=== PATIENT | male | born 1975 | race Caucasian/White ===

== ENCOUNTER 2021-12-10 23:37 | Emergency (ER) | payer OTHER, SELFPAY ==
[2021-12-10 23:38] VITALS: BP 150/89; PULSE 74; RESP 15; TEMP 36.8; O2SAT 98; BMI 46.4
--- NOTE | 2021-12-10 23:53 | EX.ED.VIS.EY ---
HPI History of Present Illness Chief Complaint: Eye Problem Informant: patient Onset/Context/Timing Location: Left Eye Onset: Days (3-day) Context: Gradual Onset Current Severity: Mild Maximum Severity: Moderate Associated Symptoms Associated Symptoms - Eyes: Pain History of injury: Welding injury Narrative Narrative: Patient presents with concerns of flash burn to his left eye. 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 He states during the day Saturday he started getting some left eye redness and irritation. Symptoms continued throughout the weekend. He was supposed to drive to [place] today but because of light sensitivity and watering did not feel that he should do so. He does wear glasses as needed. He does not wear contacts. [facility] [place] Medical History Seasonal allergies Home Medications GF-9 PO 10/30/21 [History Last Taken Unknown] multivitamin 1 tab PO DAILY 10/30/21 [History Last Taken Unknown] naproxen sodium 220 mg capsule (Aleve) 220 mg PO BID PRN 10/30/21 [History Last Taken Unknown] Allergy/AdvReac Type Severity Reaction Status Date / Time iodine Allergy Mild skin Verified 10/30/21 14:48 irritation Family History Father Diabetes Social History Smoking Status: Current every day smoker alcohol intake: current alcohol intake frequency: holidays/special occasions only substance use type: does not use ROS ROS ED Constitutional Constitutional ED: Denies chills or fever(s) Eyes Eyes: Reports blurry vision left and change in vision ENT ENT ED: Reports other Details: Watering from left eye, no exudate. ; Denies rhinorrhea or sore throat Cardiovascular Cardiovascular: Denies chest pain or palpitations Respiratory/Chest Respiratory/Chest: Denies cough or dyspnea Gastrointestinal Gastrointestinal: Denies abdominal pain, nausea or vomiting Genitourinary Genitourinary ED: Denies dysuria Musculoskeletal Musculoskeletal: Denies back pain or extremity pain Integumentary Denies Abrasions or rash Neurologic Neurologic: Denies headache(s) or weakness Psychiatric Psychiatric: Denies anxiety or depression Allergic/Immunologic Allergic/Immunologic ED: Denies lip swelling or urticaria EXAM Physical Exam Const Vital Signs: 12/10/21 23:38 Temperature 98.2 F Temperature Source Temporal Pulse Rate 74 Respiratory Rate 15 Blood Pressure 150/89 H Blood Pressure Mean 109 Pulse Ox 98 Oxygen Delivery Method Room Air Positive well nourished and well developed General Appearance ED: well developed Eyes Eyes Narrative: Conjunctival injection left eye. Small eyelash noted along the lower portion of the eye easily moved removed with cotton-tipped swab. Neck no lymphadenopathy Resp normal respiratory effort Cardio regular rate and regular rhythm Extremity normal to inspection Neuro oriented x3 and moves all extremities Sensorium / Orientation: alert Skin no wounds MDM MDM MDM Narrative Medical decision making narrative: Patient will be given tetracaine drops to help control pain here. He will be treated with gentamicin eyedrops. In 3 days who may refer to ophthalmology if not improving. Discharge Plan Triage Chief Complaint: Eye Problem ED Provider: Emilia Morrell Dx/Rx/DC Orders Clinical Impression: Flash burn of left eye Instructions: ED Flash Burn to Eye Prescriptions: No Action naproxen sodium [Aleve] 220 mg capsule 220 mg PO BID PRN GF-9 PO multivitamin Tablet 1 tab PO DAILY Stand Alone Forms: Work Status Form Primary Care Provider: NOT,DEFINED Referrals: [facility] PHYSICIANS] - 3-5 Days NOT,DEFINED [Primary Care Provider] - Activity Restrictions/Additional Instructions: Gentamicin eyedrops: 2 drops to left eye every 6 hours until symptoms resolved for full 24 hours. Disposition Disposition: Home, Self Care
[2021-12-11] MEDS: Tetracaine 0.5% Ophthalmic Bottle 2 DRP LEFT EYE (00:05)
[2021-12-11] MEDS: Gentamicin Sulfate 1 OPTH.BTL 2 DRP LEFT EYE (00:05)
== END 2021-12-11 00:34 | disposition home or self-care (01) ==
LOC: ED 12-11 00:11
PROVIDERS: Emergency Provider Emergency Medicine; Visit Provider Emergency Medicine
DX: T26.42XA Burn of left eye and adnexa, part unspecified, initial encounter (principal); T15.92XA Foreign body on external eye, part unspecified, left eye, initial encounter; F17.200 Nicotine dependence, unspecified, uncomplicated; W89.0XXA Exposure to welding light (arc), initial encounter; Y99.0 Civilian activity done for income or pay
CPT/HCPCS: 99282

== ENCOUNTER 2022-04-02 13:15 | Emergency (ER) | payer OTHER, SELFPAY ==
[2022-04-02 13:16] VITALS: BP 147/106; PULSE 80; RESP 18; TEMP 36.6; O2SAT 98; BMI 38.5
--- NOTE | 2022-04-02 13:30 | ED.RN ---
PT LEFT WITHOUT BEING SEEN
== END 2022-04-02 13:26 | disposition left against medical advice (07) ==
LOC: ED 13:33
DX: Z53.21 Procedure and treatment not carried out due to patient leaving prior to being seen by health care provider (principal)